=== PATIENT | male | born 2000 | race Caucasian/White ===

== ENCOUNTER 2024-09-10 15:23 | Emergency (ER) | payer OTHER, SELFPAY ==
[2024-09-10 15:56] VITALS: BP 129/42; PULSE 100; RESP 22; TEMP 37.1; O2SAT 97
--- NOTE | 2024-09-10 16:57 | ED_ITS ---
HPI - General Adult General Chief complaint: Shortness of Breath/Dyspnea Stated complaint: asthma attack x2d, flu A+ Time Seen by Provider: 09/10/24 16:57 Related Data Allergies Allergy/AdvReac Type Severity Reaction Status Date / Time latex Allergy Mild Nausea and Verified 09/10/24 15:29 Vomiting Course Vital Signs Vital signs: Vital Signs Temperature 37.1 C 09/10/24 15:56 Pulse Rate 100 09/10/24 15:56 Respiratory Rate 22 H 09/10/24 15:56 Blood Pressure 129/42 L 09/10/24 15:56 Pulse Oximetry 97 09/10/24 15:56 Oxygen Delivery Room Air 09/10/24 15:56 Temperature 36.8 C 09/10/24 18:08 Pulse Rate 103 H 09/10/24 19:10 Respiratory Rate 20 09/10/24 19:10 Blood Pressure 119/75 09/10/24 18:08 Pulse Oximetry 99 09/10/24 18:08 Oxygen Delivery Room Air 09/10/24 17:58 Medical Decision Making Vital Signs Vital Signs: Vital Signs Temperature 37.1 C 09/10/24 15:56 Pulse Rate 100 09/10/24 15:56 Respiratory Rate 22 H 09/10/24 15:56 Blood Pressure 129/42 L 09/10/24 15:56 Pulse Oximetry 97 09/10/24 15:56 Oxygen Delivery Room Air 09/10/24 15:56 Temperature 36.8 C 09/10/24 18:08 Pulse Rate 103 H 09/10/24 19:10 Respiratory Rate 20 09/10/24 19:10 Blood Pressure 119/75 09/10/24 18:08 Pulse Oximetry 99 09/10/24 18:08 Oxygen Delivery Room Air 09/10/24 17:58 Discharge Plan Discharge Clinical Impression: Asthma exacerbation, Influenza A Patient Disposition: Home, Self-Care Condition: Stable Instructions: Antibiotic Form, Asthma (ED), Influenza (ED), Upper Respiratory Infection (ED) Additional Instructions: Isolate at home as you are contagious. Continue your inhalers and nebulizer treatments at home. Continue steroids as prescribed. Stay well-hydrated at home. Recommend electrolyte rich fluids, Gatorade, Pedialyte, body armor. Utilize Tessalon Perles as needed for cough. Recommend Tylenol and Ibuprofen for discomfort and/or fevers. Recommend nvkw-njb-nelelbz cough and cold medicines for symptom relief, Delsym, Mucinex, DayQuil, NyQuil, Sudafed, Robitussin, TheraFlu. You were offered blood work, advanced chest imaging, and admission to hospital, but you declined this. Recommend follow up with your primary care doctor for further evaluation if needed. Return to the ED if you experience worsening or severe difficulty breathing or chest pain,unable to keep down food or drink, severe pain, coughing blood, or any other symptoms of concern. Patient Language: Indonesian Prescriptions: New benzonatate 200 mg capsule 200 mg PO TID PRN (Reason: cough) Qty: 15 0RF Follow-up/Referrals: PHYSICIAN NOT ON STAFF,NONSTAFF [Primary Care Provider] - Stand Alone Forms: Work/School Release IP Time of Disposition: 20:04
--- NOTE | 2024-09-10 17:40 | ED.SOB ---
HPI - SOB/Dyspnea General Chief Complaint: Shortness of Breath/Dyspnea Stated Complaint: asthma attack x2d, flu A+ Time Seen by Provider: 09/10/24 16:57 Source: patient Mode of arrival: ambulatory Limitations: no limitations History of Present Illness HPI Narrative: Patient is a 23-year-old male who presents the ED with report of shortness of breath. Patient reports he was diagnosed with influenza a yesterday at an urgent care. He does have history of asthma and has been having difficulty breathing over the last few days. Has been using his inhaler and DuoNebs at home without much improvement. Was prescribed prednisone yesterday by the urgent care and has been taking this as directed. Has also been taking DayQuil/NyQuil. Reports this morning after a coughing fit, his oxygen saturation was down to 87% at home. States he has had trouble keeping it above 92%. Has had fevers, productive cough, chest tightness/pain -worsening with coughing. States at times he feels like he is choking on his mucus. Related Data Allergies Allergy/AdvReac Type Severity Reaction Status Date / Time latex Allergy Mild Nausea and Verified 09/10/24 15:29 Vomiting Review of Systems Review of Systems: All systems reviewed & are unremarkable except as noted in HPI. All systems reviewed & are unremarkable except as noted in HPI and below Exam Narrative: GENERAL: Mildly ill appearing, well-nourished, non-toxic, in no acute distress. HEAD: Normocephalic, atraumatic. RESPIRATORY: Airway patent, respirations mildly tachypneic. Diffuse mild expiratory wheezing, worse throughout right lung. No significant rhonchi heard. CARDIOVASCULAR: Borderline tachycardic with regular rhythm without murmurs, rubs, or gallops. MUSCULOSKELETAL: Moves all extremities. No gross deformities. SKIN: Warm, dry, normal color. NEURO: A&O X3. Speech clear. PSYCHIATRIC: Appropriate mood and affect. Normal interaction. Course Vital Signs Vital signs: Vital Signs Temperature 98.8 F 09/10/24 15:56 Pulse Rate 100 09/10/24 15:56 Respiratory Rate 22 H 09/10/24 15:56 Blood Pressure 129/42 L 09/10/24 15:56 Pulse Oximetry 97 09/10/24 15:56 Oxygen Delivery Room Air 09/10/24 15:56 Temperature 98.2 F 09/10/24 18:08 Pulse Rate 103 H 09/10/24 19:10 Respiratory Rate 20 09/10/24 19:10 Blood Pressure 119/75 09/10/24 18:08 Pulse Oximetry 99 09/10/24 18:08 Oxygen Delivery Room Air 09/10/24 17:58 MDM - SOB/Dyspnea MDM Narrative Medical decision making narrative: Patient presented to ED with asthma exacerbation, diagnosed with influenza a yesterday. Has been using inhaler, DuoNebs, DayQuil/NyQuil at home without much improvement. Was also prescribed prednisone by urgent care yesterday. Reports he has had low oxygen saturations at home. Vital signs are stable upon arrival here. Patient's oxygen is 97-99% on room air. He does have some expiratory wheezing on exam. He is also reporting chest tightness/pain. Discussed obtaining further labs and imaging and rule out any other cardiopulmonary abnormality. Patient declined this. He states he had a chest x-ray at urgent care yesterday which did not show any evidence of pneumonia. Discussed obtaining blood work to rule out PE, EKG. Patient states he feels like his symptoms are just a result of asthma and the flu. He does not want any further lab or imaging workup. I discussed that we can provide an hour long nebulizer treatment, ambulatory pulse ox, and that I agreed with the steroid therapy that he was already on. Patient seemed very frustrated that we could not provide more care, but continues to decline whatever I offer. Patient is very concerned about his mucous being very thick and sticky and difficult to cough up. I discussed that there is no quick fix to this and that it will take some time for symptoms to resolve with influenza as this is a viral infection. Discussed that antibiotics are not indicated. He is out of the window of sx onset for tamiflu. I discussed lnnr-owl-hvrwrds therapies to utilize, including Mucinex to help thin mucous. Also discussed that nebulizer treatments can help break up mucous and open airways. Patient was initially very hesitant to this. Ultimately agreeable to hour long neb. Declined further workup at this time. Patient given hour long DuoNeb. On re-evaluation, he does report slight improvement. Still has some wheezing on exam. Again discussed obtaining further workup with lab and imaging and patient declined. Discussed potential admission for continued nebulizer treatments and steroids. Patient declined. Does not want to be admitted. Attempted to perform ambulatory pulse ox and patient is now declining this as well. States he just wants to go home. He had a pulse ox on in the room and there was no hypoxia noted while in the ED room. Patient will be discharged. Recommended f/u with PCP, continuing nebs/steroids. Patient given strict return precautions. D/C in stable condition. Medical Records Attestation: I reviewed the patient's medical records. Discharge Plan Discharge Clinical Impression: Influenza A Asthma exacerbation Qualifiers: Asthma severity: unspecified severity Asthma persistence: unspecified Qualified Code(s): J45.901 - Unspecified asthma with (acute) exacerbation Patient Disposition: Home, Self-Care Condition: Stable Instructions: Antibiotic Form, Asthma (ED), Influenza (ED), Upper Respiratory Infection (ED) Additional Instructions: Isolate at home as you are contagious. Continue your inhalers and nebulizer treatments at home. Continue steroids as prescribed. Stay well-hydrated at home. Recommend electrolyte rich fluids, Gatorade, Pedialyte, body armor. Utilize Tessalon Perles as needed for cough. Recommend Tylenol and Ibuprofen for discomfort and/or fevers. Recommend dlie-kwr-jkzqmft cough and cold medicines for symptom relief, Delsym, Mucinex, DayQuil, NyQuil, Sudafed, Robitussin, TheraFlu. You were offered blood work, advanced chest imaging, and admission to hospital, but you declined this. Recommend follow up with your primary care doctor for further evaluation if needed. Return to the ED if you experience worsening or severe difficulty breathing or chest pain,unable to keep down food or drink, severe pain, coughing blood, or any other symptoms of concern. Patient Language: Danish Prescriptions: New benzonatate 200 mg capsule 200 mg PO TID PRN (Reason: cough) Qty: 15 0RF Follow-up/Referrals: PHYSICIAN NOT ON STAFF,NONSTAFF [Primary Care Provider] - Stand Alone Forms: Work/School Release IP Time of Disposition: 20:04
[2024-09-10] MEDS: IPRATROPIUM BR 0.02% INH SOLN 0.5 MG/2.5 ML VIAL 1.5 MG INHALATION (17:44)
[2024-09-10] MEDS: LEVALBUTEROL NEB 1.25 MG/3 ML 2.5 MG INHALATION (17:45)
[2024-09-10 17:51] VITALS: PULSE 109; RESP 28
[2024-09-10 17:58] VITALS: BP 119/75; PULSE 95; RESP 20; TEMP 36.8; O2SAT 97; O2SAT 98
[2024-09-10 18:08] VITALS: BP 119/75; PULSE 95; RESP 20; TEMP 36.8; O2SAT 99
--- OUTSIDE RECORDS SUMMARY | 2024-09-10 18:20 | XMS_ITS | Encounter Summary ---
Author Organization [facility] Address [address] [place] [address] Phone Care Team Providers Care Community Health Program Representative Name Role Phone Brandon French APRN, CNP Primary Care Pr ovider Wilmer Hare MD Primary Care Provider [phone] Reason for Visit * Reason Comments Medication Refill Encounter Details Date Type Department Care Team (Late st Contact Info) Description 01/22/2024 Refill [facility] - Family Medicine [facility] [address] [place] [address] Brandon French APRN, AMA [address] [address] Medication Refill Social History Tobacco Use Types Packs/Day Years Used Date Smoking Tobacco: Former Cigarettes Smokeless Tobacco: Current Snuff Alcohol Use Standard Drinks/Week Comments Not Currently 0 (1 standard drink = 0.6 oz pur e alcohol) Socially Sexually Active Control Partners Comments Yes Sex and Gender Information Value Date Recorded Sex Assigned at Not on file Legal Sex Male 1:27 PM CDT Gender Identity Not on file Sexual Orientation Not on file documented as of this encounter Miscellaneous Notes * Telephone Encounter - Ayesha Mcadams RN - 01/23/2024 9:56 AM CDT Signed 1 week ago (01/13/2024): fluticasone-salmeterol (Advair Diskus) 500-50 MCG/ACT AEROSOL POWDER, BREATH ACTIVATED Sig: take 1 Puff by inhalation 2 times daily. Disp: 180 Each Refills: 3 Signed by: Brandon French APRN, CNP [facility] documented in this encounter Plan of Treatment Not on file documented as of this encounter Visit Diagnoses Not on filedocumented in this encounter Care Teams Community Health Program Representative Relationship Specialty Start Date End Date Brandon French APRN, AMA [address] [address] PCP - General Advanced Practice Nurse 12/31/23 Wilmer Hare MD [address] [address] PCP - General Family Medicine 02/10/24 documented as of this encounter
--- OUTSIDE RECORDS SUMMARY | 2024-09-10 18:20 | XMS_ITS | Clinical Summary ---
Author Organization [facility] the [facility] Address [address] [place] [address] Care Team Providers Care Director Of Compliance Name Role Phone Tommie Morel MD Primary Care Provider [phone] Allergies Active Allergy Reactions Criticality Noted Date Comments Latex Vomiting Low 09/12/2022 Methaqualone Unknown 09/10/2023 Quinazolinones Unknown 09/10/2023 Medications levocetirizine (XYZAL) 5 mg tablet 1 tablet (5 mg total) Active EPINEPHrine 0.3 mg/0.3 mL auto-injection syringe as directed 2 Active fluticasone propion-salmetero L (ADVAIR DISKUS) 500-50 mcg/dose diskus inhaler Inhale 1 puff 2 (two) times a day Rinse mouth with water after use. Do not swallow. 180 each 1 3 Active UNABLE TO FIND daily Med Name: Dinh Norris, Keith,Tamika i- all in one vitamin Active albuterol HFA (ProAir HFA) 90 mcg/actuation inhaler Inhale 2 puffs every 4 (four) hours as needed for wheezing or shortness of breath 3 each 1 4 10/05/19 25 Active ergocalciferol (VITAMIN D) 50,000 unit capsule Take 1.25 mg by mouth once a week 4 Active Vyvanse 30 mg capsule Take 1 capsule (30 mg total) by mouth daily 4 Active nicotine 21-14-7 mg/24 hr patch, TD daily, sequential Use as directed per package insert. 4 Active predniSONE (DELTASONE) 20 mg tabletIndications :Mild intermittent asthma with exacerbation Take 1 tablet (20 mg) by mouth 2 (two) times a day for 5 days 10 tablet 5 09/14/19 25 Active azithromycin (ZITHROMAX) 250 mg tabletIndications :Mild intermittent asthma with exacerbation Take 2 tabs (500 mg) by mouth today, than 1 tab (250 mg) daily for 4 days. 6 tablet 5 09/14/19 25 Active Active Problems Problem Noted Date Diagnosed Date S/P umbilical hernia repair, follow-up exam 09/26 Assessment & Plan (02/25/2024 9:44 AM CDT): On clinical exam there is a little bit more fullness on the right compared to the left but it appears that this is all in the subcutaneous fat which is just more prominent on that side. I do not appreciate any true fascial defect. However given the discomfort I am going to order a CT scan to better appreciate the area. 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 Once the scan returns I will call him and we can discuss further options going forward. Allergic rhinitis due to animal hair and dander 09/26/2022 Allergic rhinitis due to pollen 09/26/2022 Chronic allergic conjunctivitis 09/26/2022 Dermatitis 09/26/2022 Uncomplicated severe persistent asthma 3 Adenopathy, cervical 03/08/2022 ALFREDA (generalized anxiety disorder) 11/22/2021 Mild depressive disorder 11/22/2021 Anxiety and depression 03/02/2020 Mild intermittent asthma without complication Attention deficit hyperactiv ity disorder (ADHD), predominantly inattentive type 09/02/2019 Nasal septal deviation 09/02/2019 Numbness and tingling in both hands 09/02/2019 Annual physical exam 02/09/2019 Resolved Problems Problem Noted Date Diagnosed Date Resolved Date Umbilical hernia without obs truction and without gangrene 09/10/2023 10/15/2023 Assessment & Plan (09/10/2023 10:33 AM PHYTOCHEMISTRY PROFESSOR): We will set the patient up for an umbilical hernia repair. We have discussed doing this primarily as his prior surgery was done as well as with mesh implantation. We have talked about risk of recurrence for both options. He would like to proceed with fixing umbilical hernia with mesh placement. 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 It does not sound like he has been genetically tested for this. He was inquiring about options. Given the significant past family history perhaps referral to a genetic counselor would be the best next step. I will send a referral for further evaluation. He is in understanding of the plan. Encounters Date Type Department Care Team Description 09/09/2024 11:20 AM PHYTOCHEMISTRY PROFESSOR Ancillary Procedure [facility] at [address] [phone] Mild intermittent asthma with exacerbation 09/09/2024 11:00 AM PHYTOCHEMISTRY PROFESSOR Office Visit [facility] at [address] [phone] Fidelina Borrego NP Influenza A (Primary Dx); Mild intermittent asthma with exacerbation from Last 3 Months Immunizations Name Administration Dates Next Due Influenza, Unspecified 06/05/2023(Deferr ed: Patient Refused),07/29/2021,05/17/2021(Deferred: Patient Refused),04/28/2019(Deferred: Patient Refused) Surgical History Surgery Date Site/Laterality Comments HERNIA REPAIR 06/28/2016 - 07/28/2016 abdominal EYE SURGERY 07/29/2010 - 07/28/2011 took muscle out of rt and put in left WISDOM TOOTH EXTRACTION 07/29/2022 - 07/28/2023 Medical History Medical History Date Comments ADHD (attention deficit hyperactivity disorder) Asthma Depression 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 Motion sickness Anxiety Umbilical hernia without obs truction and without gangrene Family History Medical History Relation Name Comments No Known Problems Brother Depression Father Tommie PTSD Father Tommie Breast cancer Maternal Grandmother Jessica Cancer Maternal Grandmother Jessica Clotting disorder Maternal Grandmother Jessica ADD / ADHD Mother Yesenia Allergy (severe) Mother Yesenia Asthma Mother Yesenia Depression Mother Yesenia Hyperlipidemia Paternal Half-Sister Relation Name Status Comments Brother Alive Father Tommie Alive Maternal Grandfather Maternal Grandmother Jessica Alive Maternal Half-Sister Alive Mother Yesenia Alive Paternal Grandfather Paternal Grandmother Alive Paternal Half-Sister Alive Social History Tobacco Use Types Packs/Day Years Used Date Smoking Tobacco: Former Cigarettes 0.3 5 0 01/27/2016 - 01/26/2021 Smokeless Tobacco: Never Alcohol Use Standard Drinks/Week Comments Not Currently 0 (1 standard drink = 0.6 oz pur e alcohol) AUDIT-C Answer Date Recorded Q1: How often do you have a drink containing alc ohol? Monthly or less 09/30/2023 Q2: How many drinks containi ng alcohol do you have on a typical day when you are drinking? 1 or 2 09/30/2023 Frequency of Binge Drinking Not on file 10/2023 PHQ-2 Answer Date Recorded PHQ-2 Total Score (If total score is 3 or more points, staff should administer the PHQ-9) 0 11/28/2022 Personal Safety Answer Date Recorded Have you ever been in or are you currently in a harmful physical or emotional relationship or is someone making you feel afraid or unsafe? Denies 10/07/2023 Sex and Gender Information Value Date Recorded Sex Assigned at Not on file Legal Sex Male 3:10 PM CDT Gender Identity Not on file Sexual Orientation Not on file Obstetrics History Last Filed Vital Signs Vital Sign Reading Time Taken Comments Blood Pressure 113/73 09/09/2024 11:02 AM PHYTOCHEMISTRY PROFESSOR Pulse 112 09/09/2024 11:02 AM PHYTOCHEMISTRY PROFESSOR Temperature 36.8 C (98.3 F) 09/09/2024 11:02 AM PHYTOCHEMISTRY PROFESSOR Respiratory Rate 20 09/09/2024 11:0 2 AM PHYTOCHEMISTRY PROFESSOR Oxygen Saturation 93% 09/09/2024 11: 02 AM PHYTOCHEMISTRY PROFESSOR Inhaled Oxygen Concentration - - Weight 85.2 kg (187 lb 12.8 oz) 025 11:02 AM PHYTOCHEMISTRY PROFESSOR Height 185.4 cm (6' 0.99 ) 09/09/2024 1 1:02 AM PHYTOCHEMISTRY PROFESSOR Body Mass Index 24.78 09/09/2024 11:02 AM PHYTOCHEMISTRY PROFESSOR Plan of Treatment Health Maintenance Due Date Last Done Comments Hepatitis C Screening 2000 Pneumococcal vaccine <65 (1 of 2 - PCV) 10/24/2005 DTaP/Tdap/Td Vaccine (1 - Tdap) 10/24/2010 Varicella Vaccines (1 of 2 - 13+ 2-dose series) 10/24/2012 HPV Vaccines (1 - Male 3-dose series) 10/24/2014 Hepatitis B Screening 10/24/2017 Regular Well Visit/Exam 18-64 02/10/2020 02/09/2019 Depression Screening 11/29/2023 11/28/2022, 03/08/20 22 Covid-19 Vaccine (3 - season) 2024, 11/22/2020 Influenza Vaccine (#1) 2024 07/29/2021 Medical Devices Implanted Type Area Chargeback Analyst Device Identifier Shelf Expiration Date Model / Serial / Lot [employer]/C R Bard Ventralex St Sepra Sorbaflex 2.5in Spring Open Bioresorbable [id number] - [id number] Implanted:Qty: 1 on 10/07/2023 by Martin Wilson MD at [facility] N/A: Abdomen [employer] 09/25/2024 [id number] / / [id number] Procedures Procedure Name Priority Date/Time Associated Diagnosis Comments XR CHEST PA LATERAL 2 VIEWS Schedule SHAWNA, Read SHAWNA (Appt Today, Awaiting Results) 09/09/2024 11:25 AM PHYTOCHEMISTRY PROFESSOR Mild intermittent asthma with exacerbation POC INFLUENZA A/B, COVID-19 ANTIGEN Routine 09/09/2024 11:19 AM PHYTOCHEMISTRY PROFESSOR Influenza A from Last 3 Months Results * XR Chest Pa Lateral 2 Views (09/09/2024 11:25 AM PHYTOCHEMISTRY PROFESSOR) Anatomical Region Laterality Modality Body, Chest N/A Digital Radiogra phy 09/09/2024 12:0 2 PM PHYTOCHEMISTRY PROFESSOR Narrative 09/09/2024 12:02 PM PHYTOCHEMISTRY PROFESSOR EXAM DESCRIPTION: XR CHEST PA LATERAL 2 VIEWS REASON FOR STUDY: cough Pt complains of cough for 2-3 days. Influenza +. No surgery to heart, lungs, or chest. Ex-smoker; quitting a year ago. Pt smoked intermittently for about 4 years. History of asthma. TECHNIQUE: 2 radiographic view(s) of the chest. COMPARISON: Chest radiographs 05/22/2021 FINDINGS: The cardiomediastinal silhouette appears normal. There is no airspace consolidation or pleural effusion. IMPRESSION: No acute findings THIS IS AN ELECTRONICALLY VERIFIED FINAL REPORT 09/09/2024 12:02 PM - Electronically signed by Timothy Soni M.D., JR T: Report ID: [id number] Reading Location: [id number] Procedure Note Timothy Soni MD - 09/09/2024 EXAM DESCRIPTION: XR CHEST PA LATERAL 2 VIEWS REASON FOR STUDY: cough Pt complains of cough for 2-3 days. Influenza +. No surgery to heart,lungs, or chest. Ex-smoker; quitting a year ago. Pt smoked intermittently forabout 4 years. History of asthma. TECHNIQUE: 2 radiographic view(s) of the chest. COMPARISON: Chest radiographs 05/22/2021 FINDINGS: The cardiomediastinal silhouette appears normal. There is no airspace consolidation or pleural effusion. IMPRESSION: No acute findings THIS IS AN ELECTRONICALLY VERIFIED FINAL REPORT 09/09/2024 12:02 PM - Electronically signed by Timothy Soni M.D., JR T: Report ID: [id number] Reading Location: [place] [address] us Fidelina Borrego TEACHER LEARNING DISABLED IMG XR PROCEDURES Final Re sult * (ABNORMAL) POC Influenza A/B, COVID-19 antigen (09/09/2024 11:19 AM PHYTOCHEMISTRY PROFESSOR) Influenza A Ag, POC Positive(A) Negative [facility] Influenza B Ag, POC Negative Negative [facility] COVID-19 Ag POC Presumptive Negative Presumptive Negative, Invalid [facility] Nasal 09/09/2024 11:1 9 AM PHYTOCHEMISTRY PROFESSOR us Fidelina Borrego NP POINT OF CARE TEST ORDERAB LES Final Result [id number] [address] [place] [address], [facility] from Last 3 Months Additional Health Concerns Infection Onset Date Last Indicated Influenza, adult 09/09/2024 09/09/2024 Insurance [employer] Member Subscriber Plan / Payer (Ef fective 2022-Present) Name:Gómez Lopez Relation to Subscriber:Spouse Name:Juno Hagen Date of :1999 Address: [address] [place] [id number] Payer ID:[id number] (NAIC) Type:[employer]IG[employer] HMO/PPO Address: [address] [employer] , [place] Care Teams Director Of Compliance Relationship Specialty Start Date End Date Tommei Morel MD PCP - General Family Medicine 01/27/19
--- OUTSIDE RECORDS SUMMARY | 2024-09-10 18:20 | XMS_ITS | Referral Summary ---
Author Organization [facility] Address [address] [place] [address] Care Team Providers Care Oxidized Finish Plater Name Role Phone Tommie Morel MD Primary Care Provider [phone] Encounters Date Type Department Care Team Description 09/09/2024 11:20 AM MANAGER ENGINE Ancillary Procedure [facility] Medical Group Imaging at [address] [address] Mild intermittent asthma with exacerbation 09/09/2024 11:00 AM MANAGER ENGINE Office Visit [facility] Medical [facility] Convenient Care at [address] [address] Fidelina Borrego NP Influenza A (Primary Dx); Mild intermittent asthma with exacerbation from Last 3 Months Allergies Active Allergy Reactions Criticality Noted Date [...] TO FIND daily Med Name: Dinh Norris, Corticjulio,Tamika i- all in one vitamin Active albuterol [...] 10/15/2023 Assessment & Plan (09/10/2023 10:33 AM MANAGER ENGINE): We will set the patient up for [...] a family history in his mother of Qui syndrome. It does not sound like he has been genetically tested for this. He was inquiring about options. Given the significant past family history perhaps referral to a genetic counselor would be the best next step. I will send a referral for further evaluation. He is in understanding of the plan. Immunizations Name Administration Dates Next Due Influenza, Unspecified 06/05/2023(Deferr ed: Patient Refused),07/29/2021,05/17/2021(Deferred: Patient Refused),04/28/2019(Deferred: Patient Refused) Social History Tobacco Use Types Packs/Day Years [...] on file Sexual Orientation Not on file Last Filed Vital Signs Vital Sign Reading Time Taken Comments Blood Pressure 113/73 09/09/2024 11:02 AM MANAGER ENGINE Pulse 112 09/09/2024 11:02 AM MANAGER ENGINE Temperature 36.8 C (98.3 F) 09/09/2024 11:02 AM MANAGER ENGINE Respiratory Rate 20 09/09/2024 11:0 2 AM MANAGER ENGINE Oxygen Saturation 93% 09/09/2024 11: 02 AM MANAGER ENGINE Inhaled Oxygen Concentration - - Weight 85.2 kg (187 lb 12.8 oz) 025 11:02 AM MANAGER ENGINE Height 185.4 cm (6' 0.99 ) 09/09/2024 1 1:02 AM MANAGER ENGINE Body Mass Index 24.78 09/09/2024 11:02 AM MANAGER ENGINE Plan of Treatment Not on file Medical Devices Implanted Type Area Linotype Operator Device Identifier Shelf Expiration Date Model / Serial / Lot [employer]/C R Bard Ventralex St Sepra Sorbaflex 2.5in [place] Open Bioresorbable [id number] - [id number] Implanted:Qty: 1 on 10/07/2023 by Martin Wilson MD at [facility] N/A: Abdomen [employer] Bard 09/25/2024 [id number] / / [id number] Procedures Procedure Name Priority Date/Time Associated Diagnosis Comments XR CHEST PA LATERAL 2 VIEWS Schedule SHAWNA, Read SHAWNA (Appt Today, Awaiting Results) 09/09/2024 11:25 AM MANAGER ENGINE Mild intermittent asthma with exacerbation POC INFLUENZA A/B, COVID-19 ANTIGEN Routine 09/09/2024 11:19 AM MANAGER ENGINE Influenza A from Last 3 Months Results * XR Chest Pa Lateral 2 Views (09/09/2024 11:25 AM MANAGER ENGINE) Anatomical Region Laterality Modality Body, Chest N/A Digital Radiogra phy 09/09/2024 12:0 2 PM MANAGER ENGINE Narrative 09/09/2024 12:02 PM MANAGER ENGINE EXAM DESCRIPTION: XR CHEST PA LATERAL 2 [...] Timothy Soni M.D., JR T: Report ID: [id number] Reading Location: [id number] Procedure Note Timothy Soni MD - 09/09/2024 [...] Timothy Soni M.D., JR T: Report ID: [id number] Reading Location: [id number] Fidelina Borrego NP IMG XR PROCEDURES Final Re sult * (ABNORMAL) POC Influenza A/B, COVID-19 antigen (09/09/2024 11:19 AM MANAGER ENGINE) Influenza A Ag, POC Positive(A) Negative [facility] Influenza B Ag, POC Negative Negative [facility] COVID-19 Ag POC Presumptive Negative Presumptive Negative, Invalid [facility] Nasal 09/09/2024 11:1 9 AM MANAGER ENGINE Fidelina Borrego NP POINT OF CARE TEST ORDERAB LES Final Result Performing Organization Address City/State/[facility] Co de Phone Number [facility] [address] [place] [address], [facility] from Last 3 Months Additional Health Concerns Infection Onset Date Last Indicated Influenza, adult 09/09/2024 09/09/2024 [facility] Care Teams Oxidized Finish Plater Relationship Specialty Start Date End Date Tommie Morel MD PCP - General Family Medicine 01/27/19
--- OUTSIDE RECORDS SUMMARY | 2024-09-10 18:20 | XMS_ITS | Encounter Summary ---
Author Organization [facility] Healthcare Address [address] [place] [address] Care Team Providers Care Trust Clerk Name Role Phone Tommie Morel MD Primary Care Provider [phone] Encounter Details Date Type Department Care Team (Latest Contact Info) Description 09/09/2024 11:20 AM HEAVY EQUIPMENT OPERATOR/PAVER Ancillary Procedure [facility] Medical Group Imaging at [address] [address] Mild intermittent asthma with exacerbation Social History Tobacco Use Types Packs/Day Years [...] on file documented as of this encounter Plan of Treatment Not on file documented as of this encounter Procedures Procedure Name Priority Date/Time Associated Diagnosis Comments XR CHEST PA LATERAL 2 VIEWS Schedule SHAWNA, Read SHAWNA (Appt Today, Awaiting Results) 09/09/2024 11:25 AM HEAVY EQUIPMENT OPERATOR/PAVER Mild intermittent asthma with exacerbation documented in this encounter Results * XR Chest Pa Lateral 2 Views (09/09/2024 11:25 AM HEAVY EQUIPMENT OPERATOR/PAVER) Anatomical Region Laterality Modality Body, Chest N/A Digital Radiogra phy 09/09/2024 12:0 2 PM HEAVY EQUIPMENT OPERATOR/PAVER Narrative 09/09/2024 12:02 PM HEAVY EQUIPMENT OPERATOR/PAVER EXAM DESCRIPTION: XR CHEST PA LATERAL 2 [...] Timothy Soni M.D., JR T: Report ID: [id number] Reading Location: [id number] Procedure Note Timothy Soni MD - 09/09/2024 [...] Timothy Soni M.D., JR T: Report ID: [id number] Reading Location: [id number] Fidelina Borrego COMPUTER INFORMATION SYSTEMS INSTRUCTOR IMG XR PROCEDURES Final Re sult documented in this encounter Visit Diagnoses Diagnosis Mild intermittent asthma with exacerbation Unspecified asthma, with exacerbation documented in this encounter Additional Health Concerns Infection Onset Date Last Indicated Resolved Time COVID: Suspected 09/09/2024 09/09/2024 09/09/2024 11:20 AM HEAVY EQUIPMENT OPERATOR/PAVER Influenza, adult 09/09/2024 09/09/2024 documented as of this encounter Care Teams Trust Clerk Relationship Specialty Start Date End Date Tommie Morel MD PCP - General Family Medicine 01/27/19 documented as of this encounter
--- OUTSIDE RECORDS SUMMARY | 2024-09-10 18:20 | XMS_ITS | Encounter Summary ---
Author Organization [facility] Healthcare Address [address] [place] [address] Care Team Providers Care Compliance Associate Name Role Phone Tommie Morel MD Primary Care Provider [phone] Reason for Visit * Reason Comments Shortness of Breath Asthma Flu Symptoms X 3 days Cough, marvin estion, possible fever, body aches Encounter Details Date Type Department Care Team (Late Contact Info) Description 09/09/2024 11:00 AM SPACE TECHNOLOGIST Office Visit [facility] Medical Group Convenient Care at [address] [address] Fidelina Borrego, SYSTEMS SPEC [address] [place] [id number] Influenza A (Primary Dx); Mild intermittent asthma with exacerbation Social History [...] on file documented as of this encounter Last Filed Vital Signs Vital Sign Reading Time Taken Comments Blood Pressure 113/73 09/09/2024 11:02 AM SPACE TECHNOLOGIST Pulse 112 09/09/2024 11:02 AM SPACE TECHNOLOGIST Temperature 36.8 C (98.3 F) 09/09/2024 11:02 AM SPACE TECHNOLOGIST Respiratory Rate 20 09/09/2024 11:0 2 AM SPACE TECHNOLOGIST Oxygen Saturation 93% 09/09/2024 11: 02 AM SPACE TECHNOLOGIST Inhaled Oxygen Concentration - - Weight 85.2 kg (187 lb 12.8 oz) 025 11:02 AM SPACE TECHNOLOGIST Height 185.4 cm (6' 0.99 ) 09/09/2024 1 1:02 AM SPACE TECHNOLOGIST Body Mass Index 24.78 09/09/2024 11:02 AM SPACE TECHNOLOGIST documented in this encounter Patient Instructions * Patient Instructions* Fidelina Borrego, SYSTEMS SPEC - 09/09/2024 11:00 AM SPACE TECHNOLOGIST If you have no improvement or worsening of your symptoms, please follow up with your Primary Care Provider, Convenient Care and or Emergency Room. I strive to provide you with EXCELLENT service. You may receive a survey after your visit today. If you cannot rate your experience as EXCELLENT, please let us know how we can improve and better meet your needs. Thank you for choosing [facility]! It was my pleasure to see you today, I hope you feel better soon! Fidelina Borrego VIRTUAL OFFICE ASSISTANT Influenza ?? Supportive care is the focus of care with influenza-make sure to stay well- hydrated and treat symptoms with over the counter medications for symptom relief. ?? Take guaifenesin expectorants, i.e. Maximum Strength Mucinex, Robitussin, or store brand for chest congestion. ?? For cough, dextromethorphan (Delsym syrup, Robitussin cough capsules or store brand). Dextromethorphan is considered safe for and breast feeding women. ?? Antihistamine, i.e. Claritin, Zyrtec or Benadryl for nasal drainage, per package directions. ?? Increase oral fluids to at least 2 liters (2 quarts) of non-caffeinated, non- alcoholic beveragesdaily ?? Increase rest, monitor temperature ?? May alternate acetaminophen (Tylenol) and ibuprofen (Motrin or Advil) with food every 4-6 hours for fever, body aches, headache or sore throat. Do not exceed maximum daily dose per package instructions ?? May use hard candy, throat lozenges, Chloraseptic spray or warm salt water gargles to soothe throat ?? Activity as tolerated, Avoid crowds and large groups ?? Avoid spreading germs by washing hands frequently and covering mouth when coughing ?? People with influenza are contagious 1 day before symptoms begin and up to 7 days after getting sick Influenza Follow-up ?? Follow up with the clinic, primary care provider(Tommie Morel MD) or urgent care if symptoms become more severe. ?? If you begin to feel better, then feel significantly worse, see your primary care provider or [facility] urgent care / ER ?? Call 911 or have someone take you to ER/Urgent Care if any difficulty with breathing or shortness of breath, if you develop high fevers that do not respond to ibuprofen (Advil / Motrin) or acetaminophen (Tylenol) , if you have a hard time awakening or staying awake or become lethargic or confused, or if you develop new stiffness in your neck. If you need to be excused from more than 3 days off from work, please follow-up with your PCP. E TECHNOLOGIST * Attachments The following attachments cannot be sent through Care Everywhere. * Asthma (AfterCare(R) Instructions(ER/ED)) (Venezuelan) * Influenza (AfterCare(R) Instructions(ER/ED)) ([place]an) documented in this encounter Ordered Prescriptions Prescription Sig Dispense Quantity Refills Last Filled Start Date End Date azithromycin (ZITHROMAX) 250 mg tabletIndications: Mild intermittent asthma with exacerbation Take 2 tabs (500 mg) by mouth today, than 1 tab (250 mg) daily for 4 days. 6 tablet 09/09/2024 09/14/2024 predniSONE (DELTASONE) 20 mg tabletIndications: Mild intermittent asthma with exacerbation Take 1 tablet (20 mg) by mouth 2 (two) times a day for 5 days 10 tablet 09/09/2024 09/14/2024 documented in this encounter Progress Notes * Borrego, Fidelina B., SYSTEMS SPEC - 09/09/2024 11:00 AM CST Images from the original note were not included. Subjective/Objective Patient ID: Gómez Lopez is a 23 y.o. male. This patient has verbally consented to recording this visit in order to utilize AI technology in generating this note. Chief Complaint Shortness of Breath, Asthma, and Flu Symptoms (X 3 days Cough, congestion, possible fever, body aches ) History of Present Illness Gómez Lopez is a 23 year old male with asthma who presents with chest congestion. He has been experiencing chest pain for the past two to three days, which he describes as differentfrom previous episodes of bronchitis. The pain is located at the bottom of his lungs and is accompanied by difficulty taking a full breath for about two days. Congestion began three to four days ago. He confirms having influenza A and did not receive a flu shot this year. He has a history of asthma and has been using DuoNeb every four hours. He wakes up frequently at night due to shortness of breath, stating he woke up 'like fifteen times at least.' He has sufficient DuoNeb and an albuterol inhaler available for use. He has been taking Nyquil and DayQuil every four hours, with the last doses taken approximately twohours ago. Review of Systems All other systems reviewed and are negative. Physical Exam VITALS: SaO2- 93% HEENT: Ears normal. Throat normal. CHEST: Lungs tight with diffuse expiratory wheezing. Physical Exam Constitutional: Appearance: Normal appearance. He is normal weight. He is not ill-appearing. HENT: Head: Normocephalic. Right Ear: Tympanic membrane, ear canal and external ear normal. Left Ear: Tympanic membrane, ear canal and external ear normal. Nose: Nose normal. Mouth/Throat: Mouth: Mucous membranes are moist. Pharynx: Oropharynx is clear. Eyes: Pupils: Pupils are equal, round, and reactive to light. Cardiovascular: Rate and Rhythm: Regular rhythm. Tachycardia present. Pulses: Normal pulses. Heart sounds: Normal heart sounds. Pulmonary: Effort: Pulmonary effort is normal. Breath sounds: Wheezing (expiratory) present. Musculoskeletal: General: Normal range of motion. Cervical back: Normal range of motion. Skin: General: Skin is warm and dry. Capillary Refill: Capillary refill takes less than 2 seconds. Neurological: General: No focal deficit present. Mental Status: He is alert and oriented to person, place, and time. Mental status is at baseline. Psychiatric: Mood and Affect: Mood normal. Behavior: Behavior normal. Thought Content: Thought content normal. Judgment: Judgment normal. Vitals: 09/09/24 1102 BP: 113/73 Pulse: 112 Resp: 20 Temp: 36.8 ??C (98.3 ??F) SpO2: 93% Weight: 85.2 kg (187 lb 12.8 oz) Height: 185.4 cm (6' 0.99 ) No results found. 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 Do not swallow., Disp: 180 each, Rfl: 1 levocetirizine (XYZAL) 5 mg tablet, 1 tablet (5 mg total), Disp: , Rfl: azithromycin (ZITHROMAX) 250 mg tablet, Take 2 tabs (500 mg) by mouth today, than 1 tab (250 mg) daily for 4 days., Disp: 6 tablet, Rfl: 0 ergocalciferol (VITAMIN D) 50,000 unit capsule, Take 1.25 mg by mouth once a week, Disp: , Rfl: nicotine 21-14-7 mg/24 hr patch, TD daily, sequential, Use as directed per package insert. (Patientnot taking: Reported on 02/25/2024), Disp: , Rfl: predniSONE (DELTASONE) 20 mg tablet, Take 1 tablet (20 mg) by mouth 2 (two) times a day for 5 days,Disp: 10 tablet, Rfl: 0 UNABLE TO FIND, daily Med Name: Dinh Norris, Corticef,Reishi- all in one vitamin (Patient not taking: Reported on 02/25/2024), Disp: , Rfl: Vyvanse 30 mg capsule, Take 1 capsule (30 mg total) by mouth daily (Patient not taking: Reported on09/09/2024), Disp: , Rfl: Allergies Allergen Reactions Methaqualone Unknown Quinazolinones Unknown Latex Vomiting Social History Tobacco Use Smoking status: Former Current packs/day: 0.00 Average packs/day: 0.3 packs/day for 5.0 years (1.3 ttl pk-yrs) Types: Cigarettes Start date: 01/27/2016 Quit date: 01/26/2021 Years since quittin.6 Smokeless tobacco: Never Substance and Sexual Activity Drug use: Yes Types: Marijuana, Alcohol Comment: occasionally Sexual activity: Defer Partners: Female Alcohol Use: Patient Declined (02/10/2024) Received from [facility] AUDIT-C Frequency of Alcohol Consumption: Patient declined Average Number of Drinks: Patient declined Frequency of Binge Drinking: Patient declined Past Surgical History: Procedure Laterality Date EYE SURGERY 2010 took muscle out of rt and put in left HERNIA REPAIR 06/2016 abdominal WISDOM TOOTH EXTRACTION 2022 Procedures Assessment/Plan Results LABS Influenza A: positive Recent Results (from the past 4 hours) POC Influenza A/B, COVID-19 antigen Collection Time: 09/09/24 11:19 AM Result Value Ref Range Influenza A Ag, POC Positive (A) Negative Influenza B Ag, POC Negative Negative COVID-19 Ag POC Presumptive Negative Presumptive Negative, Invalid Assessment & Plan Influenza A with Asthma Exacerbation Patient with history of asthma presenting with chest congestion, shortness of breath, and wheezing for 2-3 days. Positive for Influenza A. Oxygen saturation at 93%. Patient has been using DuoNeb every four hours and hoda-mew-iisfbip cold medications. -Order chest x-ray to rule out pneumonia. -Out of the window for Tamiflu. -Start Prednisone. -Start Azithromycin due to asthma history and potential for secondary bacterial infection. -Continue DuoNeb as needed. -Advise patient to monitor oxygen saturation at home and seek immediate medical attention if it drops below 92%. General Health Maintenance -Confirmed patient received flu shot this year. -Provide work note as requested. Diagnoses and all orders for this visit: Influenza A (Primary) - POC Influenza A/B, COVID-19 antigen Mild intermittent asthma with exacerbation - predniSONE (DELTASONE) 20 mg tablet; Take 1 tablet (20 mg) by mouth 2 (two) times a day for 5 days - XR Chest Pa Lateral 2 Views; Future - azithromycin (ZITHROMAX) 250 mg tablet; Take 2 tabs (500 mg) by mouth today, than 1 tab (250 mg) daily for 4 days. 1252-IMPRESSION: No acute findings Disposition Treatment plan including expectations, follow up, and return precautions discussed with patient/parent, verbalizes understanding. Medication dosage, use, and potential adverse reactions discussed with patient/parent. Advised to follow up with PCP if symptoms do not resolve as expected or sooner if condition worsens. Signs/symptoms warranting ER evaluation reviewed. Patient and/or guardian was given an opportunity to ask questions, questions answered. Fidelina Borrego NP E TECHNOLOGIST E TECHNOLOGIST documented in this encounter Plan of Treatment Not on file documented as of this encounter Procedures Procedure Name Priority Date/Time Associated Diagnosis Comments POC INFLUENZA A/B, COVID-19 ANTIGEN Routine 09/09/2024 11:19 AM SPACE TECHNOLOGIST Influenza A documented in this encounter Results * XR Chest Pa Lateral 2 Views (09/09/2024 11:25 AM SPACE TECHNOLOGIST) Anatomical Region Laterality Modality Body, Chest N/A Digital Radiogra phy 09/09/2024 12:0 2 PM SPACE TECHNOLOGIST Narrative 09/09/2024 12:02 PM SPACE TECHNOLOGIST EXAM DESCRIPTION: XR CHEST PA LATERAL 2 [...] Timothy Soni M.D., JR T: Report ID: [id number] Reading Location: [id number] Procedure Note Timothy Soni MD - 09/09/2024 [...] Timothy Soni M.D., JR T: Report ID: [id number] Reading Location: [id number] Fidelina Borrego SYSTEMS SPEC IMG XR PROCEDURES Final Re sult * (ABNORMAL) POC Influenza A/B, COVID-19 antigen (09/09/2024 11:19 AM SPACE TECHNOLOGIST) Influenza A Ag, POC Positive(A) Negative [facility] Influenza B Ag, POC Negative Negative [facility] [place] [facility] COVID-19 Ag POC Presumptive Negative Presumptive Negative, Invalid [facility] Nasal 09/09/2024 11:1 9 AM SPACE TECHNOLOGIST Fidelina Borrego SYSTEMS SPEC POINT OF CARE TEST ORDERAB LES Final Result [facility] [address] [place] [address], [facility] documented in this encounter Visit Diagnoses Diagnosis Influenza A- Primary Influenza with other respiratory manifestations Mild intermittent asthma with exacerbation Unspecified asthma, with exacerbation Mild intermittent asthma with exacerbation Unspecified asthma, with exacerbation documented in this encounter Additional Health Concerns Infection Onset Date Last Indicated Resolved Time COVID: Suspected 09/09/2024 09/09/2024 09/09/2024 11:20 AM SPACE TECHNOLOGIST Influenza, adult 09/09/2024 09/09/2024 documented as of this encounter Care Teams Compliance Associate Relationship Specialty Start Date End Date Tommie Morel MD PCP - General Family Medicine 01/27/19 documented as of this encounter
--- OUTSIDE RECORDS SUMMARY | 2024-09-10 18:21 | XMS_ITS | Clinical Summary ---
Author Organization [facility] Address [address] [place] [address] Phone Care Team Providers Care Manager Case Management Name Role Phone Wilmer Hare MD Primary Care Provider [phone] Allergies Active Allergy Reactions Criticality Noted Date Comments Latex Vomiting Low 09/12/2022 Methaqualone Unknown 09/10/2023 Medications Levocetirizine Dihydrochloride 5 MG Tablet 5 mg. Active fluticasone (Flonase Allergy Relief) 50 MCG/ACT Suspension as directed in each nostril once a day for 30 day(s) Active albuterol (ACCUNEB) 0.63 MG/3ML Nebulizer Soln 3 mL by nebulizer 3 times a day for 30 day(s) Active EPINEPHrine (EPIPEN) 0.3 MG/0.3ML Solution Auto-injector DIRECTED INTRAMUSCULARLY ONCE for 1 DAY 05/08/20 22 Active fluticasone-salmet peter (Advair Diskus) 500-50 MCG/ACT AEROSOL POWDER, BREATH ACTIVATED take 1 Puff by inhalation 2 times daily. 180 Each 3 02/10/20 24 Active albuterol 108 (90 Base) MCG/ACT Aerosol Solution take 1 Puff by inhalation every 6 hours as needed for Wheezing. 18 g 2 02/10/20 24 Active Nicotine 21-14-7 MG/24HR Kit Use as directed per package insert. 1 Each 02/10/20 24 Active Vyvanse 30 MG CapsuleIndications :Attention deficit hyperactivity disorder (ADHD), combined type Take 1 Capsule by mouth daily. 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 Immunizations Immunization Administration Dates Next Due Influenza Vaccine,unspecified Formulation 2021 Family History Medical History Relation Name Comments Cancer Maternal Grandmother breast Relation Name Status Comments Maternal Grandmother Social History Tobacco Use Types Packs/Day Years Used Date Smoking Tobacco: Former Cigarettes Smokeless Tobacco: Current Snuff Tobacco Cessation:Ready to Q uit: No; Counseling Given: Yes Alcohol Use Standard Drinks/Week Comments Not Currently 0 (1 standard drink = 0.6 oz pur e alcohol) Socially [employer] Answer Date Recorded In the past 12 months has [email or web address], gas, oil, or water Boond threatened to shut off services in your home? Patient declined 02/10/2024 Social Connection and Isolation Panel [NHANES] A nswer Date Recorded In a typical week, how many times do you talk on the phone with family, friends, or neighbors? Patient declined 02/10/2024 How often do you get togethe r with friends or relatives? Patient declined 02/10/2024 How often do you attend amish or shinto serv ices? Patient declined 02/10/2024 Do you belong to any clubs o r organizations such as amish groups, unions, fraternal or athletic groups, or school groups? Patient declined 02/10/2024 How often do you attend meet ings of the clubs or organizations you belong to? Patient declined 02/10/2024 Are you , , di vorced, , never , or living with a partner? Patient declined 02/10/2024 AUDIT-C Answer Date Recorded Q1: How often do you have a drink containing alc ohol? Patient declined 02/10/2024 Q2: How many drinks containi ng alcohol do you have on a typical day when you are drinking? Patient declined 02/10/2024 Q3: How often do you have si x or more drinks on one occasion? Patient declined 02/10/2024 Overall Financial Resource Strain (CARDIA) Answe r Date Recorded How hard is it for you to pa y for the very basics like food, housing, medical care, and heating? Patient declined 02/10/2024 [facility] - Occupational Stress Questionnaire Answer Date Recorded Do you feel stress - tense, restless, nervous, or anxious, or unable to sleep at night because your mind is troubled all the time - these days? Patient declined 02/10/2024 Exercise Vital Sign Answer Date Recorde d On average, how many days pe r week do you engage in moderate to strenuous exercise (like a brisk walk)? Patient declined On average, how many minutes do you engage in exercise at this level? Patient declined 02/10/2024 Hunger Vital Sign Answer Date Recorded Within the past 12 months, y ou worried that your food would run out before you got the money to buy more. Patient declined Within the past 12 months, t he food you bought just didn't last and you didn't have money to get more. Patient declined PRAPARE - Transportation Answer Date Re corded In the past 12 months, has l ack of transportation kept you from medical appointments or from getting medications? Patient declined 02/10/2024 In the past 12 months, has l ack of transportation kept you from meetings, work, or from getting things needed for daily living? Patient declined 02/10/2024 Housing Stability Vital Sign Answer Steve e Recorded In the last 12 months, was t here a time when you were not able to pay the mortgage or rent on time? Patient declined 02/10/20 24 Number of Times Moved in the Last Year Not on fi le 02/10/2024 At any time in the past 12 m [facility], were you homeless or living in a custodial (including now)? Patient declined 02/10/2024 Sexually Active Control Partners Comments Yes Sex and Gender Information Value Date Recorded Sex Assigned at Not on file Legal Sex Male 1:27 PM CDT Gender Identity Not on file Sexual Orientation Not on file Last Filed Vital Signs Vital Sign Reading Time Taken Comments Blood Pressure 104/70 02/10/2024 11:27 AM CDT Pulse 67 02/10/2024 11:27 AM CDT Temperature 36.3 C (97.3 F) 02/10/2024 11:27 AM CDT Respiratory Rate 16 12/31/2023 3:08 PM CDT Oxygen Saturation 97% 02/10/2024 11:27 AM CDT Inhaled Oxygen Concentration - - Weight 84.4 kg (186 lb) 02/10/2024 11:27 AM CDT Height 185.4 cm (6' 1 ) 02/10/2024 11:27 AM CDT Body Mass Index 24.54 02/10/2024 11:27 AM CDT Plan of Treatment Health Maintenance Due Date Last Done Comments Hepatitis C Virus (HCV) Screening 2000 TdaP Immunization 2000 Human Papillomavirus (HPV) Immunization (1 - Male 3-dose series) 10/24/2014 Hepatitis B Immunization (1 of 3 - 19+ 3-dose series) 10/24/2018 Pneumococcal Immunization Combined (1 of 2 - PCV) 10/24/2018 Influenza Immunization (#1) 2024 07/29/2021 SARS-COV-2 Immunization (3 - season) 2024 12/16/2020, 11/22/2020 Respiratory Syncytial Virus (RSV) Immunization (Adult) (1 - 1-dose 75+ series) 10/24/2074 Meningococcal Immunization (ACWY) Aged Out No longer eligible b ased on patient's age to complete this topic Rotavirus Immunization Aged Out No lo nger eligible based on patient's age to complete this topic Insurance CIG CIGNA Care Teams Manager Case Management Relationship Specialty Start Date End Date Wilmer Hare MD #[address] [address] PCP - General Family Medicine 02/10/24
--- OUTSIDE RECORDS SUMMARY | 2024-09-10 18:21 | XMS_ITS ---
Author Organization [facility] Address [address] [place] [address] Care Team Providers Care Astronautical Engineer Name Role Phone Tommie Morel MD Primary Care Provider Unavailab le Heather Olsen Unavailable [phone] [facility], Provider Unavailable Unavailab le REASON FOR VISIT [facility] Conversion Encounter Medications Medication SIG (Take, Route, Frequency, Duration) Notes Start Date End Date Status Xyzal Allergy 24HR 5 MG 1 tablet PO daily for 30 Active ALBUTEROL (EQV-PROAIR HFA) 90 MCG/INH 2 PUFF(S) INHALED EVERY 6 HOURS *Please review for potential replacement for e-prescription and drug interaction check* Active Flonase Allergy Relief 50 MCG/ACT as directed in each nostril once a day for 30 day(s) Active EPINEPHRINE AUTO-INJECTOR 0.3 MG DIRECTED INTRAMUSCULARLY ONCE for 1 DAY *Please review for potential replacement for e-prescription and drug interaction check* 05/08/2022 Active Albuterol Sulfate 0.63 MG/3ML 3 mL by nebulizer 3 times a day for 30 day(s) Active Advair Diskus 500 MCG-50 MCG 1 INH INHALED 2 TIMES A DAY for 30 DAY(S) *Please review and pick correct strength-formulati on from [facility] options. If intended option is not shown, discontinue and re-order from Quick Search* Active Encounters Encounter Location Date Provider Diagnosis [facility] [address] [place] [address] 01/11/2024 Provider [facility] Allergic rhinitis due to pollen J30.1 ; Severe persistent asthma, uncomplicated J45.50 and Allergic rhinitis due to animal (cat) (dog) hair and dander J30.81 Assessments Encounter Date Diagnosis (ICD Code) Assessment Notes Treatment Notes Treatment Clinical Notes Section Notes 01/11/2024 Allergic rhinitis due to pollen (ICD-10 - J30.1) 01/11/2024 Severe persistent asthma, uncomplicated (ICD-10 - J45.50) 01/11/2024 Allergic rhinitis due to animal (cat) (dog) hair and dander (ICD-10 - J30.81) Plan Of Treatment Medication Medication Name Sig Start Date Stop Date Notes Xyzal Allergy 24HR 5 MG 1 tablet PO daily for 30 Flonase Allergy Relief 50 MCG/ACT as directed in each nostril once a day for 30 day(s) EPINEPHRINE AUTO-INJECTOR 0.3 MG DIRECTED INTRAMUSCULARLY ONCE for 1 DAY 05/08/2022 *Please review for potential replacement for e-prescription and drug interaction check* Advair Diskus 500 MCG-50 MCG 1 INH INHALED 2 TIMES A DAY for 30 DAY(S) *[facility] and [facility]. If intended option is not shown, discontinue and re-order from Quick Search* Progress Notes * Gómez LOPEZDOB:2000 (23 yo M)Acc No.[id number]:01/11/2024 Patient: Gómez GALDAMEZ Provider: Grace Graham :2000 A ge:23 Y S ex:Male Date:01/11/2024 Address:[address] [place], [place] [id number] Pcp:Tommie Morel MD Subjective: * Chief Complaints: * [facility] . [facility] * Medical History: * Medications: T aking Albuterol Sulfate 0.63 MG/3ML Nebulization Solution 3 mL by nebulizer 3 times a day , Taking ALBUTEROL (EQV-PROAIR HFA) 90 MCG/INH AEROSOL 2 PUFF(S) INHALED EVERY 6 HOURS , Notes to Pharmacist: *Please review for potential replacement for e-prescription and drug interaction check* Objective: * Vitals: Assessment: * Assessment: 1. S evere persistent asthma, uncomplicated - J45.50 (Primary) 2 . A llergic rhinitis due to pollen - J30.1 3 . A llergic rhinitis due to animal (cat) (dog) hair and dander - J30.81 Plan: * Treatment: 2. A llergic rhinitis due to pollen Start EPINEPHRINE AUTO-INJECTOR KIT, 0.3 MG, DIRECTED, INTRAMUSCULARLY, ONCE, 1 DAY, 1, Refills 0, Notes to Pharmacist: *Please review for potential replacement for e-prescription and drug interaction check*. 3. A llergic rhinitis due to animal (cat) (dog) hair and dander Continue Xyzal Allergy 24HR Tablet, 5 MG, 1 tablet, PO, daily, 30, 30, Refills 3; C ontinue Flonase Allergy Relief Suspension, 50 MCG/ACT, as directed, in each nostril, once a day, 30 day(s).? * Billing Information: * Visit Code: * Procedure Codes: * Electronic signature of Aspen CELIS-Migration on 09/10/2024 at 06:20 PM FSR Sign off status: Pending * Provider: Grace valle Migration Date: 0 01/11/2024 Generated for Tim gunter/Adam/Lisaitting on: 0 09/10/2024 06:20 PM FSR
--- OUTSIDE RECORDS SUMMARY | 2024-09-10 18:22 | XMS_ITS | Patient Health Record ---
Author Organization [facility] Address [address] [place] [address] Care Team Providers Care Inside Sales Supervisor Name Role Phone Tommie Morel MD Primary Care Provider Unavailab le Heather Olsen Unavailable [phone] [facility], Provider Unavailable Unavailab le Allergies No Known Allergies Reason For Referral No Information Medications Medication SIG (Take, Route, Frequency, Duration) Notes Start Date End Date Status ADVAIR DISKUS 500 mcg-50 mcg 1 INH inhaled 2 times a day for 30 day(s) Active XYZAL 5 mg 1 tablet PO daily fo r 30 Active Xyzal Allergy 24HR 5 MG 1 tablet PO daily for 30 Active ALBUTEROL (EQV-PROAIR HFA) 90 MCG/INH 2 PUFF(S) INHALED EVERY 6 HOURS *Please review for potential replacement for e-prescription and drug interaction check* Active Flonase Allergy Relief 50 MCG/ACT as directed in each nostril once a day for 30 day(s) Active Advair Diskus 500 MCG-50 MCG 1 INH INHALED 2 TIMES A DAY for 30 DAY(S) *Please review and pick correct strength-formulati on from [facility] options. If intended option is not shown, discontinue and re-order from Quick Search* Active EPINEPHRINE AUTO-INJECTOR 0.3 MG DIRECTED INTRAMUSCULARLY ONCE for 1 DAY *Please review for potential replacement for e-prescription and drug interaction check* 05/08/2022 Active Albuterol Sulfate 0.63 MG/3ML 3 mL by nebulizer 3 times a day for 30 day(s) Active FLONASE ALLERGY RELIEF 50 mcg/inh as directed in each nostril once a day for 30 day(s) Active ALBUTEROL 0.63 mg/3 mL (0.021%) 3 mL by nebulizer 3 times a day for 30 day(s) Active Social History Tobacco Use: Social History Observation Description Date Details (start date - stop date) Former Smoker 04/04/2011 - 01/29/2022 Smoking Smart Form: Question Answer Notes Are you a: former smoker When did you start smoking? 04/04/2011 When did you stop smoking? 01/29/2022 How long it has been since you last smoked? 1-3 months Problems Problem Type SNOMED Code ICD Code Onset Dates Problem Status W/U Status Risk Notes Problem Chronic allergic conjunctivitis (61001752) Other chronic allergic conjunctivitis (H10.45) Active confirmed Problem Allergic rhinitis caused by pollen (disorder) (76028932) Allergic rhinitis due to pollen (J30.1) Active confirmed Problem Uncomplicated severe persistent asthma (507210106) Severe persistent asthma, uncomplicated (J45.50) Active confirmed Problem Dermatitis (326684699) Dermatitis, unspecified (L30.9) Active confirmed Problem Food allergy (959572070) Allergy to other foods (Z91.018) Active confirmed Problem Latex allergy status (Z91.040) Active confirmed Problem Allergic rhinitis caused by pollen (disorder) (63648173) Allergic rhinitis due to pollen (J30.1) Active confirmed Problem Allergic rhinitis caused by animal hair and dander (518178613837056) Allergic rhinitis due to animal (cat) (dog) hair and dander (J30.81) Active confirmed Encounters Encounter Location Date Provider Diagnosis [address] [address] 01/11/2024 Provider [facility]Migration Allergic rhinitis due to [...] dander (ICD-10 - J30.81) Plan Of Treatment Pending Test Test Name Order Date -IgE+Latex 05/08/2022 SPIROMETRY CHALLENGE 04/03/2022 -Allergen Profile w/ Component Reflexes Respiratory - Area 8 05/08/2022 Insurance Providers Payer Name Payer Address Payer Phone Subscriber Number Group Number Insured Name Patient Relationship to Insured Coverage Start Date Coverage End Date Juan [address] [place] [address] [id number] Child - Insured has Financial Responsibility Medical (General) History Medical History History ICD Code Severe persistent asthma, uncomplicated J45.50 Chronic rhinitis J31.0 Surgical History Surgery Date(Month/Year) Hernia Repair - Abdomen 07/12/2016 eye surgery 08/19/2010 Hospitalization History Reason Date(Month/Year) see past surgeries
--- NOTE | 2024-09-10 18:29 | PC.NURSE ---
RT requested pt to be on telemetry, no equipment is available at this time. pt placed on bedside pulse oxymeter at this time.
[2024-09-10 19:10] VITALS: PULSE 103; RESP 20
--- NOTE | 2024-09-10 20:03 | PC.NURSE ---
Attempted to ambulate patient with a pulse ox. Patient stated I am not doing that. I will have an asthma attack and she is going to want me to stay here, I am not staying. I have to be in bed in one hour . Patient educated and still refused. EDP made aware. Patient able to speak in full sentences with no apparent distress while walking around his room.
[2024-09-10] MEDS: BENZONATATE 100 MG CAPSULE 200 MG PO (20:31)
== END 2024-09-10 20:14 | disposition home or self-care (01) ==
PROVIDERS: Emergency Provider Physician Assistant
DX: J45.901 Unspecified asthma with (acute) exacerbation (principal); J10.1 Influenza due to other identified influenza virus with other respiratory manifestations
CPT/HCPCS: 94640; 99283; A9270